=== PATIENT | female | born 1975 | race Caucasian/White ===

== ENCOUNTER 2019-09-20 20:45 | Emergency (ER) | payer BC ==
[~2019-09-20] VITALS: Ht 152.4 cm; Wt 48.5 kg
[~2019-09-20 20:45] MED LIST: Bactrim 400-801 EACH PO; CRUTCH2 USE; Cleocin HCl300 MG PO; DEXT10ER PO; FLUO10 PO; NAPR550 PO; OXYACE5T PO; RXNAPNA550 PO; TRAZ50
[2019-09-20 21:26] LABS: Source, Urine Clean Catch
[2019-09-20 21:27] LABS: BASOPHILS ABSOLUTE AUTO 0.04 K/mm3 (0.00-0.23); BASOPHILS PERCENT AUTO 1 % (0-2); EOSINOPHILS ABSOLUTE AUTO 0.64 K/mm3 (0.00-0.68); EOSINOPHILS PERCENT AUTO 8 % (0-6); Hematocrit 40.5 % (33.0-51.0); Hemoglobin 13.5 g/dL (11.5-16.0); IMMATURE GRAN ABSOLUTE AUTO 0.02 K/mm3 (0.00-0.10); IMMATURE GRAN PERCENT AUTO 0 % (0-1); LYMPHOCYTES ABSOLUTE AUTO 2.18 K/mm3 (0.84-5.20); LYMPHOCYTES PERCENT AUTO 26 % (21-46); MONOCYTES ABSOLUTE AUTO 0.59 K/mm3 (0.16-1.47); MONOCYTES PERCENT AUTO 7 % (4-13); Mean Corpuscular HGB 31.3 pg (26.0-34.0); Mean Corpuscular HGB Conc 33.3 g/dL (31.5-36.5); Mean Corpuscular Volume 94 fL (80-100); Mean Platelet Volume 8.7 fL (9.1-12.4); NEUTROPHILS ABSOLUTE AUTO 5.04 K/mm3 (1.96-9.15); NEUTROPHILS PERCENT AUTO 59 % (41-73); Platelet Count 327 K/mm3 (150-400); RDW Coefficient Variation 11.9 % (11.7-14.2); RDW Standard Deviation 41.3 fL (35.1-46.3); Red Blood Cell Count 4.31 M/mm3 (3.80-5.20); White Blood Cell Count 8.51 K/mm3 (4.00-11.30)
[2019-09-20 21:28] LABS: Bilirubin, Urine Neg (Neg); Blood, Urine 1+ (Neg); Glucose Qualitative, Urine Neg (Neg); Ketones, Urine 1+ (Neg); Leukocyte Esterase, Urine 1+ (Neg); Nitrite, Urine Neg (Neg); Protein, Urine Neg (Neg); Urobilinogen, Urine NORM (Normal)
[2019-09-20 21:35] LABS: Appearance, Urine Cloudy (Clear); Color, Urine Yellow (P-Yellow)
[2019-09-20 21:36] LABS: Amorphous Mod (0-Heavy); Bacteria Many /hpf; Red Blood Cells, Urine 0-2 /hpf (0-2); Squamous Epithelial Cells Mod /hpf (Few); White Blood Cells, Urine 0-2 /hpf (0-5)
[2019-09-20 21:45] LABS: Alanine Aminotransfer (ALT/SGP 21 U/L (12-78); Albumin, Blood 4.1 g/dL (3.4-5.0); Albumin/Globulin Ratio 1.4 (0.8-1.8); Alk Phos 100 U/L (50-136); Anion Gap 5 mmol/L (6-16); Aspartate Aminotrans (AST/SGOT 21 U/L (12-37); Bilirubin, Total 0.3 mg/dL (0.1-1.0); Blood Urea Nitrogen 11 mg/dL (8-24); Bun/Creatinine Ratio 10.9 (12.0-20.0); CO2, Blood 26 mmol/L (21-32); Calcium, Blood 8.3 mg/dL (8.5-10.1); Chloride, Blood 109 mmol/L (98-108); Creatinine, Blood 1.01 mg/dL (0.40-1.00); Globulin, Blood 2.9 g/dL (2.2-4.0); Glomerular Filtration Rate >60 (60-); Glucose, Blood 86 mg/dL (70-99); Potassium, Blood 3.4 mmol/L (3.5-5.5); Sodium, Blood 140 mmol/L (136-145)
== END 2019-09-20 22:53 | disposition home or self-care (01) ==
LOC: ER 20:45
PROVIDERS: Emergency Medicine
DX: R10.813 Right lower quadrant abdominal tenderness (principal); F32.9 Major depressive disorder, single episode, unspecified; F90.9 Attention-deficit hyperactivity disorder, unspecified type; Z88.0 Allergy status to penicillin; Z88.2 Allergy status to sulfonamides; Z88.5 Allergy status to narcotic agent; Z79.899 Other long term (current) drug therapy
CPT/HCPCS: 36415; 80053; 81001; 81025; 85025; 87086; 99283

== ENCOUNTER 2021-10-03 13:00 | Emergency (ER) | payer BC ==
[~2021-10-03] VITALS: Ht 152.4 cm; Wt 53.5 kg
[2021-10-03] MEDS ORDERED: ESCI10 PO (13:12)
[2021-10-03] MEDS ORDERED: BUPROPION XL150 M1 PO (13:13)
[2021-10-03] MEDS ORDERED: METPHE20 PO (13:13)
== END 2021-10-03 16:15 | disposition home or self-care (01) ==
LOC: ER 13:00
DX: S30.1XXA Contusion of abdominal wall, initial encounter (principal); M25.562 Pain in left knee; M54.2 Cervicalgia; Z88.0 Allergy status to penicillin; Z88.2 Allergy status to sulfonamides; Z88.5 Allergy status to narcotic agent; Z87.891 Personal history of nicotine dependence; V89.2XXA Person injured in unspecified motor-vehicle accident, traffic, initial encounter; Y92.410 Unspecified street and highway as the place of occurrence of the external cause
CPT/HCPCS: 36415; 73562-LT; 74177; Q9967

== ENCOUNTER 2021-10-20 14:03 | Emergency (ER) | payer BC ==
[~2021-10-20] VITALS: Ht 152.4 cm; Wt 54.4 kg
[~2021-10-20 14:03] MED LIST changes: +BUPROPION XL150 M1 PO; +ESCI10 PO; +METPHE20 PO
== END 2021-10-20 14:25 | disposition home or self-care (01) ==
LOC: ER 14:03
DX: R07.89 Other chest pain (principal); Z88.0 Allergy status to penicillin; Z88.2 Allergy status to sulfonamides; Z88.5 Allergy status to narcotic agent; Z79.899 Other long term (current) drug therapy; Z87.891 Personal history of nicotine dependence
CPT/HCPCS: 99282

== ENCOUNTER 2022-05-30 13:33 | Inpatient (IN) | payer OTHER, BC ==
[~2022-05-30] VITALS: Ht 152.4 cm; Wt 59.0 kg
[2022-05-30 16:52] LABS: BASOPHILS ABSOLUTE AUTO 0.04 K/mm3 (0.00-0.23); BASOPHILS PERCENT AUTO 0 % (0-2); EOSINOPHILS ABSOLUTE AUTO 0.04 K/mm3 (0.00-0.68); EOSINOPHILS PERCENT AUTO 0 % (0-6); Hematocrit 44.1 % (33.0-51.0); Hemoglobin 15.8 g/dL (11.5-16.0); IMMATURE GRAN PERCENT AUTO 1 % (0-1); LYMPHOCYTES ABSOLUTE AUTO 2.05 K/mm3 (0.84-5.20); LYMPHOCYTES PERCENT AUTO 12 % (21-46); MONOCYTES ABSOLUTE AUTO 0.54 K/mm3 (0.16-1.47); MONOCYTES PERCENT AUTO 3 % (4-13); Mean Corpuscular HGB Conc 35.8 g/dL (31.5-36.5); Mean Corpuscular Volume 89 fL (80-100); Mean Platelet Volume 8.6 fL (9.1-12.4); NEUTROPHILS ABSOLUTE AUTO 14.06 K/mm3 (1.96-9.15); NEUTROPHILS PERCENT AUTO 84 % (41-73); Platelet Count 409 K/mm3 (150-400); RDW Coefficient Variation 11.5 % (11.7-14.2); RDW Standard Deviation 37.2 fL (35.1-46.3); Red Blood Cell Count 4.94 M/mm3 (3.80-5.20); White Blood Cell Count 16.83 K/mm3 (4.00-11.30)
[2022-05-30 17:17] LABS: Albumin, Blood 4.1 g/dL (3.4-5.0); Albumin/Globulin Ratio 1.1 (0.8-1.8); Bilirubin, Total 0.7 mg/dL (0.1-1.0); Bun/Creatinine Ratio 17.1 (12.0-20.0); Calcium, Blood 9.7 mg/dL (8.5-10.1); Creatinine, Blood 0.59 mg/dL (0.40-1.00); Globulin, Blood 3.7 g/dL (2.2-4.0); Potassium, Blood 3.5 mmol/L (3.5-5.5); Total Protein, Blood 7.8 g/dL (6.4-8.2)
[2022-05-30] MEDS ORDERED: TRI-LO-SPRINTE1 EACH PO (17:21)
[2022-05-30] MEDS ORDERED: MONT10T PO (17:21)
[2022-05-31 04:36] LABS: BASOPHILS ABSOLUTE AUTO 0.01 K/mm3 (0.00-0.23); BASOPHILS PERCENT AUTO 0 % (0-2); EOSINOPHILS PERCENT AUTO 0 % (0-6); Hemoglobin 13.7 g/dL (11.5-16.0); IMMATURE GRAN ABSOLUTE AUTO 0.02 K/mm3 (0.00-0.10); IMMATURE GRAN PERCENT AUTO 0 % (0-1); LYMPHOCYTES ABSOLUTE AUTO 1.36 K/mm3 (0.84-5.20); LYMPHOCYTES PERCENT AUTO 16 % (21-46); MONOCYTES ABSOLUTE AUTO 0.47 K/mm3 (0.16-1.47); MONOCYTES PERCENT AUTO 6 % (4-13); Mean Corpuscular HGB 31.1 pg (26.0-34.0); Mean Corpuscular HGB Conc 35.1 g/dL (31.5-36.5); Mean Corpuscular Volume 88 fL (80-100); Mean Platelet Volume 8.7 fL (9.1-12.4); NEUTROPHILS ABSOLUTE AUTO 6.72 K/mm3 (1.96-9.15); NEUTROPHILS PERCENT AUTO 78 % (41-73); Platelet Count 361 K/mm3 (150-400); RDW Coefficient Variation 11.3 % (11.7-14.2); RDW Standard Deviation 36.6 fL (35.1-46.3); Red Blood Cell Count 4.41 M/mm3 (3.80-5.20); White Blood Cell Count 8.58 K/mm3 (4.00-11.30)
[2022-05-31 05:08] LABS: Albumin, Blood 3.3 g/dL (3.4-5.0); Bilirubin, Total 0.7 mg/dL (0.1-1.0); Bun/Creatinine Ratio 15.4 (12.0-20.0); Calcium, Blood 8.7 mg/dL (8.5-10.1); Creatinine, Blood 0.58 mg/dL (0.40-1.00); Globulin, Blood 3.3 g/dL (2.2-4.0); Magnesium, Blood 1.9 mg/dL (1.6-2.4); Potassium, Blood 3.7 mmol/L (3.5-5.5); Total Protein, Blood 6.6 g/dL (6.4-8.2)
--- NOTE | 2022-05-31 05:23 | NUR ---
CLINICAL CODER SUMMARY NEW ADMIT TONIGHT STRAIGHT FROM THE OR. PT HAD I&D OF L ELBOW. FINGERS WITH GOOD CAP REFILL AND PT ABLE TO MOVE ALL FINGERS, PT DOES REPORT SOME NUMBNESS TO FIRST 3 FINGERS ON L HAND SINCE SURGERY. PAIN HAS BEEN MANAGED WITH IV TORADOL. L ARM IN SLING AND ELEVATED ON PILLOW WHILE PT IN BED. STANDBY ASSIST TO BATHROOM, MINIMAL ASSIST NEEDED. VSS, WILL CONTINUE TO MONITOR.
--- NOTE | 2022-05-31 11:30 | NUR ---
PATIENT APPEARS TO BE NON-COMPLIANT WITH WEIGHT BEARING RESTRICTIONS OF LEFT ARM. ARM IS EXTENDED TO SIDE W/O SLING, PATIENT BENDING AND MOVING ARM AROUND TO PUT HAIR IN PONY AND MOVE BELONGINGS ON BEDSIDE TABLE. THIS RN EDUCATED PATIENT ON WEIGHT BEARING STATUS AND THAT ARM SHOULD BE KEPT IN SLING AND NOT USED AT ALL AT THIS TIME. PATIENT VERBALLY AGREED, HOWEVER, CONTINUES TO USE.
--- NOTE | 2022-05-31 16:42 | NUR ---
SHIFT SUMMARY POD 1 I&D OF LEFT WRIST. GAUZE & JOSEPHINE WRAP BANDAGE IN PLACE, C/D/I. PAIN MANAGED WELL PER EMAR. PATIENT AMBULATING WELL SBA TO BATHROOM & WITHIN ROOM. PATIENT HAS BEEN NON-COMPLIANT WITH SLING TO LEFT ARM. PATIENT WAS USING ARM ON REGULAR BASIS AND REMINDED MULTIPLE TIMES THAT LEFT ARM SHOULD NOT BE USED AND IS TO BE NON WEIGHT BEARING. PATIENT VERBALIZES AGREEMENT, ALTHOUGH STILL USES IT. EATING & DRINKING WELL, DENIES N/V, WILL BE NPO AT MIDNIGHT FOR POSSIBLE REPEAT SURGERY TOMORROW W/ DR MEADE. USES CALL LIGHT APPROPRIATELY, WILL REPORT TO ONCOMING RN AT 1900.
[2022-05-31 21:30] LABS: Vancomycin, Trough 13.2 ug/mL (5.0-10.0)
--- NOTE | 2022-06-01 03:47 | NUR ---
TRACK HOE OPERATOR SUMMARY PT IS POD 1 FOR L ELBOW I&D. MEDICATING FOR PAIN NEEDED PER JUL. PT NEEDS REGULAR REMINDING TO KEEP L ARM NWB AND TO KEEP IN SLING. WOUND VAC DRAINING SMALL AMOUNT OF RED DRAINAGE. CONTINUES ON IV ABX AND FLUIDS. PT HAS BEEN NPO SINCE MIDNIGHT FOR A 2ND WASH OUT LATER TODAY. VSS, WILL CONTINUE TO MONITOR.
--- NOTE | 2022-06-01 13:30 | NUR ---
PATIENT TO OR VIA HONEY WITH RN'S ABAD
--- NOTE | 2022-06-01 13:56 | NUR ---
History, Chart, Medications and Allergies reviewed before start of procedure.Lungs clear T/O to Auscultation. Patient confirms NPO status and agrees with scheduled surgery.
--- NOTE | 2022-06-01 14:23 | NUR ---
06/01/22 1423 Carole Pedersen NO PREOP ANTIBIOTICS ORDERED PER PATIENT IS ON SCHEDULED ANTIBIOTICS.
--- NOTE | 2022-06-01 16:34 | NUR ---
PATIENT RETURNED TO ROOM VIA GURNEY, TRANSFERRED TO BED SBA. LEFT ELBOW IN SLING WITH JOSEPHINE WRAP DRESSING, C/D/I. VSS ON RA. PATIENT REPORTS MINIMAL PAIN AT THIS TIME. TOLERATING SIPS OF WATER CURRENTLY. CALL LIGHT IN REACH.
--- NOTE | 2022-06-01 18:06 | NUR ---
SHIFT SUMMARY PATIENT HAD ORIF OF LEFT ELBOW THIS SHIFT. NO ACUTE CHANGES SINCE RETURN TO UNIT. LEFT ELBOW REMAINS IN SLING & JOSEPHINE WRAP. EDUCATED PATIENT AND PROVIDED EMPHASIS ON WEIGHT BEARING STTUS OF LEFT ARM, PATIENT WAS PREVIOUSLY NON-COMPLIANT WITH WBS. VSS ON ROOM AIR. EATING, DRINKING, & VOIDING WELL. AMBULATING WELL TO THE BATHROOM INDPENDENTLY. CALLS APPROPRIATELY, WILL REPORT TO ONCOMING RN.
[2022-06-01 21:17] LABS: Vancomycin, Trough 16.1 ug/mL (5.0-10.0)
--- NOTE | 2022-06-02 05:13 | NUR ---
SHIFT SUMMARY PT POD 0 ORIF FOR LEFT OLECRANON FRACTURE, ARM IS WRAPPED AND IN SLING. PT REPORTS FULL SENSATION AND ABLE TO WIGGLE FINGERS SKIN WARM AND DRY. SHE REPORTS PAIN OVERNIGHT, PAIN WELL CONTROLLED WITH NORCO. PT NONWEIGHT BEARING LEFT ARM. POST OP VITALS STABLE, POST OP ANTIBIOTICS PER ORDERS. PT IS TOLERATING PO INTAKE AND IS VOIDING. BED IN LOWEST POSITION, CALL LIGHT WITHIN REACH.
[2022-06-02] MEDS ORDERED: FAMO20 PO (12:27)
[2022-06-02] MEDS ORDERED: DOCU100 PO (12:27)
[2022-06-02] MEDS ORDERED: ACET325 PO (12:27)
[2022-06-02] MEDS ORDERED: Norco 5-325 Ta1 EACH PO (12:28)
[2022-06-02] MEDS ORDERED: VISBIOME 112.51 EACH PO (12:28)
[2022-06-02] MEDS ORDERED: LEVFLO500 PO (12:29)
[2022-06-02] MEDS ORDERED: XARELTO10 M1 PO (12:29)
--- NOTE | 2022-06-02 15:48 | NUR ---
DISCHARGE PT PROVIDED WITH WRITTEN AND VERBAL DISCHARGE INSTRUCTIONS, SHE REPORTED UNDERSTANDING. PAIN MANAGED AT TIME OF DISCHARGE. BP 143/93 AND HR 101 SLIGHTLY ELEVATED, PT ASYMPTOMATIC. DR. CAAL NOTIFIED, OK FOR PT TO DISCHARGE HOME. PT WAS EDUCATED TO TAKE HER BP 3X PER DAY AND RECORD AND FOLLOW UP WITH PCP DOCTOR IN 1 WEEK. [facility], CONFIRMATION RECEIVED. HARDSCRIPT SENT PROVIDED TO PT. PT PROVIDED WITH DRESSING CHANGE SUPPLIES. PT AMBULATED OUT INDEPENDENTLY AT 1553.
== END 2022-06-02 15:47 | disposition home or self-care (01) | DRG 512 ==
LOC: ER 13:33 → SURS 16:55 → ER 16:55 → SURS 17:10
PROVIDERS: Orthopaedic Surgery; Pharmacist; Student in an Organized Health Care Education/Training Program; ADMIT Orthopaedic Surgery
PROC: 0PSL04Z Reposition Left Ulna with Internal Fixation Device, Open Approach (ICD-10-PCS; principal; 2022-06-01 14:00)
DX: S52.022B Displaced fracture of olecranon process without intraarticular extension of left ulna, initial encounter for open fracture type I or II (principal); J44.9 Chronic obstructive pulmonary disease, unspecified; F32.A Depression, unspecified; F12.10 Cannabis abuse, uncomplicated; F41.9 Anxiety disorder, unspecified; F90.9 Attention-deficit hyperactivity disorder, unspecified type; W01.0XXA Fall on same level from slipping, tripping and stumbling without subsequent striking against object, initial encounter; Z88.0 Allergy status to penicillin; Z88.2 Allergy status to sulfonamides; Z88.5 Allergy status to narcotic agent; Z79.899 Other long term (current) drug therapy; Z87.891 Personal history of nicotine dependence; Z86.14 Personal history of Methicillin resistant Staphylococcus aureus infection
CPT/HCPCS: 36415; 73080; 80053; 80202; 83735; 85025; 86850; 86900; 86901; 87070; 87071; 87075; 87205; 90471; 90714; 94640; 94664; 94760; 96374; 96375; 99285-25; A9270; C1713; J0171; J0690; J1100; J1170; J1885; J2250; J2270; J2405; J2543; J2704; J3010; J3370; J7050; J7120